=== PATIENT | female | born 2000 | race Two or more races ===

== ENCOUNTER → 2025-04-08 | Emergency (ER) | payer OTHER ==
[~2025-04-08] VITALS: Ht 162.6 cm; Wt 77.1 kg
[~2025-04-08] MED LIST: 0.9 % SODIUM CHLORIDE 500 ML IV ONE; CEFTRIAXONE SODIUM 1,000 MG VIAL IM ONE; CEFTRIAXONE SODIUM 2,000 MG VIAL IV ONE; DEXAMETHASONE SODIUM PHOSP/PF 10 MG/ML VIAL IV STA; DIPHENHYDRAMINE HCL 50 MG/ML VIAL 1ML IV STA; KETOROLAC TROMETHAMINE 30 MG VIAL IV ONE; LORazepam 2 MG/ML VIAL IM ONE; LORazepam 2 MG/ML VIAL IV PUSH STA; METOCLOPRAMIDE HCL 10 MG in DEXTROSE 5 % IN WATER 50 ML IV ONE; MORPHINE SULFATE 2 MG/ML SYRINGE IV ONE; ORPHENADRINE CITRATE 30 MG/ML AMPUL IV STA; PROMETHAZINE HCL 50 MG/ML AMPUL IM STA
[2025-04-08 22:10] LABS: BASO % 0.5 % (0.1-1.2); EOS # 0.04 (0.04-0.54); EOS % 0.4 % (0.7-7.0); LYMPH # 1.94 (1.18-3.74); LYMPH % 17.6 % (19.3-53.1); MEAN PLATELET VOLUME 9.80 fl (9.4-12.4); MONO # 0.44 (0.24-0.82); MONO % 4.0 % (4.7-12.5); NEUT # 8.53 (1.56-6.13); NEUT % 77.3 % (34.0-71.1); RED CELL DISTRIBUTION WIDTH 14.8 % (11.6-14.4)
[2025-04-08 22:29] LABS: ALT/SGPT 14.0 U/L (12-78); AST/SGOT 6.0 U/L (15-37); BILIRUBIN TOTAL 0.35 mg/dL (0.3-1.2); BUN CREA RATIO 8.0 (7.0-25.0); CREATININE SERUM 0.72 mg/dL (0.55-1.02); GFR 99.52; GLOBULINA 4.0 G/DL (2.4-3.5); GLUCOSE FASTING 99.0 mg/dL (65-100); OSMOLALITY SERUM 279.0 MOSM/KG (275-295)
[2025-04-08 22:35] LABS: COVID-19 AG NEGATIVE (NEGATIVE)
[2025-04-09 12:20] LABS: INR 1.13
[2025-04-09 12:31] LABS: URINE APPEARANCE Clear; URINE BILIRRUBIN Negative (NEGATIVE); URINE BLOOD Negative; URINE COLOR Yellow; URINE GLUCOSE Negative (NEGATIVE); URINE LEUKOCYTE Negative; URINE NITRATE Negative; URINE PROTEIN Trace (NEGATIVE); URINE UROBILINOGEN 0.2 E.U./dl
[2025-04-09 12:34] LABS: URINE BACTERIA 561.6 uL (0.0-1933); URINE EPITHELIAL CELLS 19.6 uL (0.0-38.8); URINE RBC 26.8 uL (0.0-20.8); URINE WBC 7.8 uL (0.0-23.2)
[2025-04-09 12:40] LABS: COCAINE NEGATIVE (NEGATIVE); METHADONE NEGATIVE (NEGATIVE); OPIATES POSITIVE (NEGATIVE); THC ( Cannabinoids) NEGATIVE (NEGATIVE)
[2025-04-09 12:55] LABS: URINE KETONE 40 (NEGATIVE)
[2025-04-09 12:56] LABS: URINE CAST 0.00 uL (0.0-1.40)
== END | disposition home or self-care (01) ==
LOC: ER 20:44
PROVIDERS: General Practice; Preventive Medicine Public Health & General Preventive Medicine
DX: R51.9 Headache, unspecified (principal); F44.89 Other dissociative and conversion disorders; Z20.822 Contact with and (suspected) exposure to COVID-19
CPT/HCPCS: 70546